=== PATIENT | female | born 1995 | race Caucasian/White ===

== ENCOUNTER 2025-08-07 09:17 | Outpatient (CLI) | payer SELFPAY ==
[2025-08-07] VITALS (8 sets, daily range): BP systolic 105–140; BP diastolic 58–72; PULSE 87–94; RESP 16; TEMP 36.2; O2SAT 100; BMI 27.2
--- NOTE | 2025-08-07 09:29 | USR_ITS ---
PROCEDURE INFORMATION: Exam: US , Limited Exam date and time: 08/07/2025 10:14 AM Age: 30 years old Clinical indication: Screening exam; Routine US, uterus; Additional info: Post dates, vaginal discharge LABS AND CLINICAL REPORTS: Last menstrual period start date: Unknown Gestational age (Established): 40 w 3 d Estimated due date (Established): 08/04/2025 TECHNIQUE: Imaging protocol: Real-time ultrasound of the maternal uterus with image documentation. Exam focused on the clinical indication. COMPARISON: No relevant prior studies available. FINDINGS: Gestation: Single intrauterine gestation heart rate: 142 bpm Placenta: Anterior. Grade 2 placental changes Amniotic fluid index: KI is 6.72 cm. BIOMETRY: Gestational age (AUA): 40 weeks 2 days. Estimated weight: 4027.4 g. EFW by AC, BPD, FL, HC, [place] 1985, 76th percentile Biparietal diameter (BPD): 9.8 cm. EGA (BPD) is 40 w 1 d. Head circumference (HC): 34.75 cm. EGA (HC) is 40 w 2 d. Abdominal circumference (AC): 36.37 cm. EGA (AC) is 40 w 2 d. Femur length (FL): 7.84 cm. EGA (FL) is 40 w 1 d. HC/AC: 0.96. (Normal range: 0.91 - 1.02) FL/HC: 22.56. (Normal range: 20.96 - 22.7) FL/BPD: 80 FL/AC: 21.56. (Normal range: 20 - 24) MATERNAL: Cervix: Cervical length measures 4.4 cm. PROCEDURE INFORMATION: Exam: US Biophysical Profile Without Non-Stress Test Exam date and time: 08/07/2025 10:14 AM Clinical indication: Screening exam; Routine US, uterus; Additional info: Post dates, vaginal discharge TECHNIQUE: Imaging protocol: US biophysical profile without non-stress testing. COMPARISON: No relevant prior studies available. FINDINGS: BIOPHYSICAL PROFILE: breathing (BPP): 2 out of 2. gross body movement (BPP): 2 out of 2. tone (BPP): 2 out of 2. Amniotic fluid (BPP): 2 out of 2. US/US OB lmt w/ BPP wo NST IMPRESSION: 1. Single living intrauterine fetus with a sonographically estimated gestational age of 40 weeks 2 days. 2. Lower limits of normal amniotic fluid index IMPRESSION: Biophysical profile score is 8 out of 8.
--- NOTE | 2025-08-07 12:00 | PC.NURSE ---
phone numbers for [facility] Women's Health and [facility] provided. pt encouraged to establish care with a provider of choice to discuss induction options. pt and verbalized and states they will do that now. discussed with pt that if she feels she is in labor or needs to be seen she can come to OB for evaluation at any time regardless of status of care with a doctor. understanding verbalized.
== END 2025-08-07 11:15 | disposition home or self-care (01) ==
LOC: OPOB 09:25 → OBGYN 11:11
PROVIDERS: Visit Provider Family Medicine
DX: O60.00 Preterm labor without delivery, unspecified trimester (principal); Z3A.00 Weeks of gestation of pregnancy not specified; N89.8 Other specified noninflammatory disorders of vagina
CPT/HCPCS: 59025; 76815; 76819; 80307; 82950; 84112; 84315; 84443; 85025; 86592; 86762; 86803; 86850; 86900; 87077; 87081; 87086; 87184; 87340; 87491; 87591; 87661; 87806; 99211

== ENCOUNTER 2025-08-08 01:24 | Inpatient (IN) | payer SELFPAY ==
[2025-08-07 23:42] VITALS: BP 128/74; PULSE 85
[2025-08-07 23:58] VITALS: BP 130/77; PULSE 90
[2025-08-08] VITALS (79 sets, daily range): BP systolic 93–153; BP diastolic 50–88; PULSE 67–104; RESP 14–16; TEMP 36.6–36.7; O2SAT 92–100; BMI 27.6
[2025-08-08 01:20] LABS: Hematocrit 31.9 % (36-47); Hemoglobin 10.80 g/dL (11.27-16.99); Mean Corpuscular HGB Conc 33.9 g/dL (30-55); Mean Corpuscular Hemoglobin 30.3 pg (27-33); Mean Corpuscular Volume 89.6 fl (85-98); Nucleated Red Blood Cells % 0 %; Platelet Count 188 10^3/cmm (157-399); Red Blood Count 3.56 10^6/uL (3.85-5.65); White Blood Count 10.73 10^3/uL (3.29-11.43)
--- NOTE | 2025-08-08 02:01 | ANES.PREANE2 ---
Pre-Anesthetic Assessment Height/Weight: Height 1.73 m Pulse BP 79 132/83 08/08/25 01:45 08/08/25 01:45 Preop Diagnosis: Labor pain PHILIPPE Was Beta Chelly taken within 24 hours: N/A Was Clonidine taken within 24 hours: N/A Social No alcohol and No tobacco Exam alert, oriented x 3, clear to auscultation bilaterally and regular rate & rhythm Airway Submandibular: within normal limits Cervical ROM: within normal limits Mallampati: Class II Dentition: false History/ROS No significant history except as noted and No significant complaints Pulmonary None reported CV/HEM None reported None reported Hepatic None reported GI None reported Metabolic None reported Musc/skel None reported Neuropsych None reported Anesthetic Plan ASA status: 2 Anesthesia: Anesthesia Evaluation and Regional (specify below) Other: PHILIPPE Risk of > 500 ml blood loss (7ml/kg in children): No Medications/Allergies Home Medications ?Medication ?Instructions ?Recorded ?Confirmed ?Last Taken ?Type calcium 500 mg tablet 500 mg PO DAILY 08/07/25 08/08/25 Unknown History multivitamin with minerals 1 pkg PO DAILY 08/07/25 08/08/25 Unknown History protein 1 tab PO DAILY 08/07/25 08/08/25 Unknown History Allergies Allergy/AdvReac Type Severity Reaction Status Date / Time Alpha-Gal Allergy ADR-Abdominal Verified 08/08/25 01:33 (Syystwvnq-Bhfws-1,3-Gala Pain Current Medications Generic Name Dose Route Start Last Admin Trade Name Freq PRN Reason Stop Dose Admin Sodium Chloride 1,000 mls @ 999 mls/hr 08/08/25 00:20 08/08/25 00:54 Sodium Chloride 0.9% IV 999 mls/hr .Q1H1M PRN Administration See label comments Dextrose/Lactated Ringer's 1,000 mls @ 125 mls/hr 08/08/25 00:30 08/08/25 01:53 Dextrose 5%-Lactated Ringers IV 125 mls/hr .Q8H JATINDER Administration PFSH Anesthesia Family History Father Hypertension Social History Smoking and tobacco/nicotine status: never used tobacco/nicotine Data Anesthesia 08/08/25 01:00 Short CBC 08/08/25 Range/Units 01:00 WBC 10.73 (3.29-11.43) 10^3/uL Hgb 10.80 L (11.27-16.99) g/dL Hct 31.9 L (36-47) % MCV 89.6 (85-98) fl Plt Count 188 (157-399) 10^3/cmm Neut % (Auto) 76.8 % Neut # (Auto) 8.25 H (1.8-7.7) 10^3/uL
--- NOTE | 2025-08-08 02:05 | ANES.PROC ---
Anesthesia Procedures Procedure/Date: 08/08/25 Epidural: Time Out Performed: Yes Consents Signed: Procedure Consent Consent: requested by attending/covering physician, from patient, risks and benefits reviewed and patient agrees to proceed Lumbar Level: L3-L4 Epidural position: sitting Epidural procedure: sterile prep of area, 1% lidocaine to numb the area, 18 g needle, neg for paresthesia, test dose given, 1.5% xylocaine 1:200k epi (5cc), 0.2% Ropivacaine bolus ml (4cc and fentanyl 100mcg), placed PCEA, no systemic response, sterile dressing applied and 0.2% Ropiavacaine @ mls/hr (13cc/hour) Additional Comments: Pt tolerated well
--- NOTE | 2025-08-08 02:10 | PM.OBGYHP ---
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 Barbara Mazariegos is a 30 year old female No care Never had ultrasound during this States her LMP was October 18, 2024 EDC by her LMP was July 25, 2025; at 41 w 6 d c/o painful uterine contractions no bleeding, fluid leakage + active movements h/o x four Present Details : 5 Para: 4 Labs Rubella: Non-Immune RPR: Results in [employer] GBS: Unknown Medications/Allergies Home Medications ?Medication ?Instructions ?Recorded ?Confirmed ?Last Taken ?Type calcium 500 mg tablet 500 mg PO DAILY 08/07/25 08/08/25 Unknown History multivitamin with minerals 1 pkg PO DAILY 08/07/25 08/08/25 Unknown History protein 1 tab PO DAILY 08/07/25 08/08/25 Unknown History Allergies Allergy/AdvReac Type Severity Reaction Status Date / Time Alpha-Gal Allergy ADR-Abdominal Verified 08/08/25 01:33 (Fiupzljxz-Uxhxs-2,3-Gala Pain 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 VS normal General awake, alert, appropriate Lungs: clear Cor: RRR Abd: FH 37 cm / cephalic Cervix: 3 cm / 50% / -3 Ext: no edema External monitor: regular UCs heart tracing good variability, + accelerations Urinary Catheter Management: Cordova Latex: Cath Placed During This Visit: yes, but has since been removed by the nurse Reason for Continuing Indwelling Catheter: Decision to DC Catheter Urinary Catheter Date of Insertion: 08/08/25 Urinary Catheter Time of Insertion: 03:58 Date Urinary Catheter Removed: 08/08/25 Time Urinary Catheter Discontinued: 06:45 Data 08/08/25 01:00 Results Labs OB ([facility]): Obstetrics US/Biophysical Profile 08/07/25 Blood Type A Positive 08/08/25 Antibody Screen Negative 08/08/25 Hct, (36-47) 31.9 % L 08/08/25 Hgb, (11.27-16.99) 10.80 g/dL L 08/08/25 Rho(D) Type Rh positive 08/08/25 Plt Count, (157-399) 188 10^3/cmm 08/08/25 Hep Bs Antigen, (Nonreactive) Non-reactive 08/07/25 Hepatitis C Antibody, (Nonreactive) Non-reactive 08/07/25 Rubella IgG Antibody, (0.0-10.0) 0.2 IU/mL 08/07/25 HIV 1&2 Ab & HIV 1 Ag, (Non-Reactiv) Non-reactive 08/07/25 TSH, (0.27-4.20) 4.39 uIU/mL H 08/07/25 Glucose 1 Hr 50 gm, (85-140) 192 mg/dL H 08/07/25 Urine Opiates Screen, (Negative) Negative ng/mL 08/07/25 Ur Barbiturates Screen, (Negative) Negative ng/mL 08/07/25 Ur Phencyclidine Scrn, (Negative) Negative ng/mL 08/07/25 Ur Amphetamines Screen, (Negative) Negative ng/mL 08/07/25 U Benzodiazepines Scrn, (Negative) Negative ng/mL 08/07/25 Urine Cocaine Screen, (Negative) Negative ng/mL 08/07/25 U Marijuana (THC) Screen, (Negative) Negative ng/mL 08/07/25 Micro Urine Specimen 08/07/25 A&P Assessment and plan 1. Active labor: No care Uncertain EDC Possibly 41 w 6 d Unknown GBS Active labor Fetus reassuring Admit Labor management PDMP PDMP Reviewed: Not Reviewed Attestations Medical Necessity Statement*: patient with active labor at term Coding Level of Care Code Acute Code for Chg Fwd Diagnoses Active labor
[2025-08-08] MEDS: ROPivacaine premix 200 MG/100 ML PREMIX 13 MG EPIDURAL (02:30)
--- NOTE | 2025-08-08 06:50 | PM.DELIVERY ---
Delivery Note: Date of delivery: August 08, 2025 Pre-delivery diagnoses: no care approximately 41 weeks gestation active labor spontaneous rupture of membranes Post-delivery diagnoses: no care approximately 41 weeks gestation active labor spontaneous rupture of membranes vaginal delivery Procedure: vaginal delivery Op report anesthesia: Epidural Delivering Physician: John Viveros MD Estimated blood loss (mL): 300 Findings: , vigorous male Clear amniotic fluid Cord gases and blood obtained No episiotomy / lacerations EBL: 300 cc No complications Patient refused Pitocin Pre-Delivery Course: normal labor course fetus reassuring throughout Delivery: vaginal Post-Delivery Status: good History History History 5 Term 4 0 Miscarriages/Ectopic 0 Living Children 4 A&P Assessment and plan 1. Vaginal delivery: PDMP PDMP Reviewed: Not Reviewed Coding Level of Care Code Acute Code for Chg Fwd Diagnoses Vaginal delivery O80
--- NOTE | 2025-08-08 13:14 | ANE.PACU2 ---
Inpatient post-anesthesia follow up: Airway intact: Yes Vital signs: Temperature 98.0 F Pulse Rate 83 Respiratory Rate 16 Blood Pressure 117/77 Pulse Oximetry 98 Oxygen Delivery Me thod Room Air Oxygen Flow Rate Fraction of Inspir ed Oxygen Hydration adequate: Yes Nausea and vomiting: No Pain level: 1 Mental status: Baseline Epidural Start/End: Epidural Start Date: 08/07/25 Epidural Start Time: 13:55 Epidural End Date: 08/08/25 Epidural End Time: 10:27
--- NOTE | 2025-08-08 20:10 | P.PN_ITS ---
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 Subjective: Interval history: Patient s/p today at 0650 Wants to go home Wants to take baby home at the same time Advised patient to stay at least 24 hours Patient refused Wants to sign out against medical advice Informed patient of risks of early discharge Risks include, but not limited to, bleeding; infection, sepsis; hypertension Instructions and precautions given Will discharge to home against medical advice Return to OB clinic in one week Labor: Station: +1 Amniotic Membrane Status: Ruptured Monitor Mode: External Contraction Pattern: Regular Vitals/I&O/Wt Last Vital Signs Temp 98.0 F 08/08/25 08:02 Pulse 82 08/08/25 16:18 Resp 14 08/08/25 16:18 BP 114/77 08/08/25 16:18 Pulse Ox 98 08/08/25 16:18 O2 Del Method Room Air 08/08/25 16:18 Physical Exam 2 Urinary Catheter Management: Cordova Latex: Cath Placed During This Visit: yes, but has since been removed by the nurse Reason for Continuing Indwelling Catheter: Decision to DC Catheter Urinary Catheter Date of Insertion: 08/08/25 Urinary Catheter Time of Insertion: 03:58 Date Urinary Catheter Removed: 08/08/25 Time Urinary Catheter Discontinued: 06:45 Data 08/08/25 01:00 A&P Assessment and plan 1. Vaginal delivery: PDMP PDMP Reviewed: Not Reviewed Attestations 2 Medical Necessity Statement*: patient s/p vaginal delivery, wants to sign out against medical advice Coding Level of Care Code Acute Code for Chg Fwd Diagnoses Vaginal delivery O80
--- NOTE | 2025-08-08 20:50 | PM.OBGYDC ---
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 Vaginal delivery: Details from hospital stay: 30 y.o. No care Never had ultrasound during this States her LMP was October 18, 2024 EDC by her LMP was July 25, 2025; at 41 w 6 d presented c/o painful uterine contractions no bleeding, fluid leakage + active movements h/o x four patient progressed to complete dilatation fetus was reassurring throughout patient delivered vaginally without any complications She had no episiotomy or lacerations Approximately 14 hours after delivery, patient wanted to go home against medical advice Risks, instructions, and precautions were given to patient patient was then discharged against medical advice Reason for Visit Reason for Visit: contractions Brief History: 30 y.o. No care Never had ultrasound during this States her LMP was October 18, 2024 EDC by her LMP was July 25, 2025; at 41 w 6 d presented c/o painful uterine contractions Hospital Course Hospital Course 30 y.o. No care Never had ultrasound during this States her LMP was October 18, 2024 EDC by her LMP was July 25, 2025; at 41 w 6 d presented c/o painful uterine contractions no bleeding, fluid leakage + active movements h/o x four patient progressed to complete dilatation fetus was reassurring throughout patient delivered vaginally without any complications She had no episiotomy or lacerations Approximately 14 hours after delivery, patient wanted to go home against medical advice Risks, instructions, and precautions were given to patient patient was then discharged against medical advice Information Peripartum Data: Delivery Method: Vaginal Laceration description: None Episiotomy description: None Physical Exam Urinary Catheter Management: Cordova Latex: Cath Placed During This Visit: yes, but has since been removed by the nurse Reason for Continuing Indwelling Catheter: Decision to DC Catheter Urinary Catheter Date of Insertion: 08/08/25 Urinary Catheter Time of Insertion: 03:58 Date Urinary Catheter Removed: 08/08/25 Time Urinary Catheter Discontinued: 06:45 History History History 5 Term 4 0 Miscarriages/Ectopic 0 Living Children 4 Discharge Data Studies Completed and Pending Laboratory Results WBC 10.73 10^3/uL (3.29-11.43) 08/08/25 01:00 RBC 3.56 10^6/uL (3.85-5.65) L 08/08/25 01:00 Hgb 10.80 g/dL (11.27-16.99) L 08/08/25 01:00 Hct 31.9 % (36-47) L 08/08/25 01:00 MCV 89.6 fl (85-98) 08/08/25 01:00 MCH 30.3 pg (27-33) 08/08/25 01:00 MCHC 33.9 g/dL (30-55) 08/08/25 01:00 RDW 12.8 % (12.1-15.1) 08/08/25 01:00 Plt Count 188 10^3/cmm (157-399) 08/08/25 01:00 MPV 9.3 fL (7.4-10.4) 08/08/25 01:00 Neut % (Auto) 76.8 % 08/08/25 01:00 Lymph % (Auto) 17.1 % 08/08/25 01:00 [place] % (Auto) 4.9 % 08/08/25 01:00 Eos % (Auto) 0.5 % 08/08/25 01:00 Baso % (Auto) 0.3 % 08/08/25 01:00 Neut # (Auto) 8.25 10^3/uL (1.8-7.7) H 08/08/25 01:00 Lymph # (Auto) 1.8 10^3/uL (0.8-4.8) 08/08/25 01:00 [place] # (Auto) 0.5 10^3/uL (0.2-0.9) 08/08/25 01:00 Eos # (Auto) 0.1 10^3/uL (0.0-0.8) 08/08/25 01:00 Baso # (Auto) 0.0 10^3/uL (0.0-0.1) 08/08/25 01:00 Nucleated RBC % (auto) 0 % 08/08/25 01:00 Nucleated RBCs # 0.0 /100WBC 08/08/25 01:00 Blood Type A Positive 08/08/25 01:00 Rho(D) Type Rh positive 08/08/25 01:00 Antibody Screen Negative 08/08/25 01:00 Procedures Performed vaginal delivery Vitals Last Vital Signs Temp 98.0 F 08/08/25 08:02 Pulse 82 08/08/25 16:18 Resp 14 08/08/25 16:18 BP 114/77 08/08/25 16:18 Pulse Ox 98 08/08/25 16:18 O2 Del Method Room Air 08/08/25 16:18 Results Labs OB ([facility]): Obstetrics US/Biophysical Profile 08/07/25 Blood Type A Positive 08/08/25 Antibody Screen Negative 08/08/25 Hct, (36-47) 31.9 % L 08/08/25 Hgb, (11.27-16.99) 10.80 g/dL L 08/08/25 Rho(D) Type Rh positive 08/08/25 Plt Count, (157-399) 188 10^3/cmm 08/08/25 Hep Bs Antigen, (Nonreactive) Non-reactive 08/07/25 Hepatitis C Antibody, (Nonreactive) Non-reactive 08/07/25 Rubella IgG Antibody, (0.0-10.0) 0.2 IU/mL 08/07/25 HIV 1&2 Ab & HIV 1 Ag, (Non-Reactiv) Non-reactive 08/07/25 TSH, (0.27-4.20) 4.39 uIU/mL H 08/07/25 Glucose 1 Hr 50 gm, (85-140) 192 mg/dL H 08/07/25 Urine Opiates Screen, (Negative) Negative ng/mL 08/07/25 Ur Barbiturates Screen, (Negative) Negative ng/mL 08/07/25 Ur Phencyclidine Scrn, (Negative) Negative ng/mL 08/07/25 Ur Amphetamines Screen, (Negative) Negative ng/mL 08/07/25 U Benzodiazepines Scrn, (Negative) Negative ng/mL 08/07/25 Urine Cocaine Screen, (Negative) Negative ng/mL 08/07/25 U Marijuana (THC) Screen, (Negative) Negative ng/mL 08/07/25 Micro Urine Specimen 08/07/25 Discharge Plan Discharge Patient Disposition: Left Against Medical Advice Prescriptions: No Action calcium 500 mg Tablet 500 mg PO DAILY protein Tablet 1 tab PO DAILY Vitality Stress Pack For Women Combo Pack 1 pkg PO DAILY Referrals: Pina Baer NP [Nurse Practitioner, C[employer] MILL INSPECTOR] - 09/22/25 8:30 am Referral Note: * Your 6 week appointment is on 09/22/2025 at 8:30am Patient Instructions: Depression (DC), Bleeding (DC), Preeclampsia and Eclampsia After Delivery (GEN), Hemorrhage (DC), OB Discharge Report, OB Food/Drug Interaction Guide, OB Home Care, OB Proud Parent Packet, OB Vaginal Deliveries - [facility] Discharge Attestations COLD MILL INSPECTOR Time Spent in Discharge Care*: less than 30 min Coding Level of Care Code Acute Code for Chg Fwd Diagnoses Vaginal delivery O80
== END 2025-08-08 20:11 | disposition left against medical advice (07) | DRG 807 ==
LOC: OPOB 01:25 → OBGYN 01:25
PROVIDERS: Admitting Provider Obstetrics & Gynecology; Visit Provider Obstetrics & Gynecology
DX: O48.0 Post-term pregnancy (principal); Z37.0 Single live birth; Z3A.41 41 weeks gestation of pregnancy
CPT/HCPCS: 36415; 51702; 59025; 59409; 85025; 86850; 86900; 99211; J2795; J3010; J7030; J7121